=== PATIENT | male | born 1950 | race Caucasian/White ===

== ENCOUNTER 2020-05-06 09:00 | Outpatient (RCR) | payer MEDICARE, SELFPAY ==
[2020-04-11 08:28] VITALS: BP 158/68; PULSE 68; RESP 16; TEMP 35.9; O2SAT 96
[2020-04-15 09:25] LABS: Glucose Point of Care 173 (65-105)
--- NOTE | 2020-05-09 09:43 | PCCPR ---
Absent without call or show/ early dc Spoke with Irvin about his recent absence past 2 sessions. He verbalized it was too cold to attend yesterday and today. States he is planning to head in another direction doing his [facility]. States he does not plan to return. Wished him well. Discharged
== END 2020-05-09 09:48 | disposition home or self-care (01) ==
LOC: ANHCPREHAB 09:00
PROVIDERS: PCP Family Medicine
DX: Z95.1 Presence of aortocoronary bypass graft (principal); Z95.2 Presence of prosthetic heart valve
CPT/HCPCS: 93798

== ENCOUNTER 2021-01-21 00:18 | Day surgery (SDC) | payer MEDICARE, SELFPAY ==
[2021-01-09 14:57] VITALS: BMI 33.5
[2021-01-21 07:52] VITALS: BP 141/76; PULSE 70; RESP 18; TEMP 35.8; O2SAT 94
--- NOTE | 2021-01-21 07:52 | WPDGICN ---
Assessment and Plan Assessment and plan (1) History of colon polyps: Code(s): Z86.010 - Personal history of colonic polyps Status: Acute Assessment and Plan: Patient has a distant history of colon polyps plan is for surveillance colonoscopy at 5 year intervals. He also has a family history of colon cancer in his mother and colon polyps in His son. Plan is for surveillance colonoscopy at this time. Follow-up at 5 year intervals suggested. (2) Family history of colon cancer in mother: Code(s): Z80.0 - Family history of malignant neoplasm of digestive organs Status: Acute GI Consult Note Consult date/time: 01/21/21 07:52 HPI: Som Euceda is a 70 year old male Presents for screening colonoscopy. Patient's current weight appetite bowel movements are normal. He denies abdominal pain. He has had no bleeding. Patient does have a history of villous adenoma removed from the colon approximately 15 years ago. He had a benign hyperplastic polyp removed from the colon 5 years ago. His family history is significant that his mother had colon cancer his son has been identified as having colon polyps as well. Patient presents today for surveillance colonoscopy. Review of Systems Review of Systems: All systems reviewed & are unremarkable except as noted in HPI and below PMFSH Past Medical History Medical History Diverticulosis small intestine Myocardial infarction Surgical History Surgical History H/O aortic valve replacement History of cardiac catheterization (~1998) History of cardiac catheterization (~1993) History of radiofrequency ablation (RFA) procedure for cardiac arrhythmia History of radiofrequency ablation procedure for cardiac arrhythmia Hx of heart artery stent S/P CABG x 1 S/P left atrial appendage ligation Family History Family History Mother Diabetes mellitus Renal disease Carcinoma of colon Cerebrovascular accident Father Heart disease Hyperlipidemia Hypertension COPD (chronic obstructive pulmonary disease) Sibling Heart disease Lung cancer Diabetes mellitus Other Asthma Family history of allergic disorder Social History Social History Smoking packs per day: 1 Smoking cigarettes per day: 20.0 Years smoked: 20 Smoking pack-years: 20.00 Smoking status: Former smoker Tobacco type: cigarettes Second hand tobacco smoke exposure: No Smoking end date: 04/12/93 Alcohol intake: current Drinks per week: 2 Substance use: never Substance use type: does not use Living arrangements: with family Spiritual care concerns: No Meds Home Medications and Allergies Home Medications Medication Instructions Recorded Confirmed Type atorvastatin 80 mg tablet 80 mg PO DAILY 03/16/19 01/09/21 History finasteride 5 mg tablet 5 mg PO DAILY 03/16/19 01/09/21 History metformin 1,000 mg tablet 1,000 mg PO BID 03/16/19 01/09/21 History tamsulosin 0.4 mg capsule 0.4 mg PO DAILY 03/16/19 01/09/21 History dulaglutide [Trulicity] 1.5 mg SUBCUT WEEKLY 04/11/20 01/09/21 History losartan 12.5 mg PO DAILY 04/11/20 01/09/21 History rivaroxaban [Xarelto] 20 mg PO DAILY 04/11/20 01/09/21 History aspirin 81 mg tablet,delayed 81 mg PO DAILY 11/29/20 01/09/21 History release carvedilol 6.25 mg PO BID 01/09/21 01/09/21 History Allergies Allergy/AdvReac Type Severity Reaction Status Date / Time lisinopril Allergy Intermediate cough Verified 01/21/21 07:50 simvastatin Allergy Intermediate cramp Verified 01/21/21 07:50 empagliflozin AdvReac Severe Yeast Verified 01/21/21 07:50 [From Jardiance] Infection Exam Narrative: Physical exam reveals patient to be alert. Vital signs stable. HEENT exam is unremarkable. Christina
[2021-01-21] MEDS: LACTATED RINGERS 1,000 ML 150 ML IV CONT (08:01)
[2021-01-21] MEDS: GENTAMICIN 80MG/SOD CHL 50 ML 80 MG/50 ML BAG 100 MG IVPB (08:03)
--- NOTE | 2021-01-21 08:09 | WPDANESEPPF ---
Anes - Initial Pre Proc Eval Procedure: Operation Date: 01/21/21 09:00 Proposed Procedures p Screening Colonoscopy - Reuben Garcia MD Date/Time: 01/21/21 08:09 Surgeon: Reuben Garcia MD Pre Op Diagnosis: screening colon, hx of colon polyps Patient Data Age: 70 Gender: M Height: 1.75 m Weight: 106.7 kg Last Vital Signs Temp 96.4 F L 01/21/21 07:52 Pulse 70 01/21/21 07:52 Resp 18 01/21/21 07:52 BP 141/76 H 01/21/21 07:52 Pulse Ox 94 01/21/21 07:52 Allergies Allergy/AdvReac Type Severity Reaction Status Date / Time lisinopril Allergy Intermediate cough Verified 01/21/21 07:50 simvastatin Allergy Intermediate cramp Verified 01/21/21 07:50 empagliflozin AdvReac Severe Yeast Verified 01/21/21 07:50 [From Jardiance] Infection Home Medications Medication Instructions Recorded Confirmed Type atorvastatin 80 mg tablet 80 mg PO DAILY 03/16/19 01/21/21 History finasteride 5 mg tablet 5 mg PO DAILY 03/16/19 01/21/21 History metformin 1,000 mg tablet 1,000 mg PO BID 03/16/19 01/21/21 History tamsulosin 0.4 mg capsule 0.4 mg PO DAILY 03/16/19 01/21/21 History dulaglutide [Trulicity] 1.5 mg SUBCUT WEEKLY 04/11/20 01/21/21 History losartan 12.5 mg PO DAILY 04/11/20 01/21/21 History rivaroxaban [Xarelto] 20 mg PO DAILY 04/11/20 01/21/21 History aspirin 81 mg tablet,delayed 81 mg PO DAILY 11/29/20 01/21/21 History release carvedilol 6.25 mg PO BID 01/09/21 01/21/21 History Patient hx anesthesia problems: none Family hx anesthesia problems: none Results Review: All pre-operative results and documents have been reviewed as part of the pre-operative evaluation. COUNTS INCLUDE 234 BEDS AT THE [facility] Past Medical History Medical History Diverticulosis small intestine Myocardial infarction Surgical History Surgical History H/O aortic valve replacement History of cardiac catheterization (~1998) History of cardiac catheterization (~1993) History of radiofrequency ablation (RFA) procedure for cardiac arrhythmia History of radiofrequency ablation procedure for cardiac arrhythmia Hx of heart artery stent S/P CABG x 1 S/P left atrial appendage ligation Family History Family History Mother Diabetes mellitus Renal disease Carcinoma of colon Cerebrovascular accident Father Heart disease Hyperlipidemia Hypertension COPD (chronic obstructive pulmonary disease) Sibling Heart disease Lung cancer Diabetes mellitus Other Asthma Family history of allergic disorder Social History Social History Smoking packs per day: 1 Smoking cigarettes per day: 20.0 Years smoked: 20 Smoking pack-years: 20.00 Smoking status: Former smoker Tobacco type: cigarettes Second hand tobacco smoke exposure: No Smoking end date: 04/12/93 Alcohol intake: current Drinks per week: 2 Substance use: never Substance use type: does not use Living arrangements: with family Spiritual care concerns: No Anes - Eval Final PreProcedure Day of Procedure 01/21/21 08:09 Patient weight: obese Heart: regular rate and rhythm Lungs: clear to auscultation Airway: Mallampati scale class III Neurological: alert and oriented Last oral intake: >/= 8 hours ASA classification: III Emergent: no Anesthetic plan: proceed Anesthesia type and monitoring: general GIVS and standard monitoring Results Review: All pre-operative results and documents have been reviewed as part of the pre-operative evaluation. Informed Consent: The patient's anesthetic plan and its attendant risks and benefits were discussed with the patient/family/POA. Questions were solicited and answers provided to the satisfaction of the patient/family/POA.
[2021-01-21 08:11] LABS: Glucose Point of Care 156 mg/dl (65-105)
[2021-01-21 08:41] VITALS: BP 114/63; PULSE 71; RESP 24; O2SAT 98
[2021-01-21 08:51] VITALS: BP 127/80; PULSE 75; RESP 22; O2SAT 98
[2021-01-21 09:01] VITALS: BP 127/74; PULSE 61; RESP 22; O2SAT 98
== END 2021-01-21 09:14 | disposition home or self-care (01) ==
PROVIDERS: PCP Family Medicine; Visit Provider Internal Medicine Gastroenterology
PROC: 0DJD8ZZ Inspection of Lower Intestinal Tract, Via Natural or Artificial Opening Endoscopic (ICD-10-PCS; CPT 45378; principal; 2021-01-21 09:00)
DX: Z12.11 Encounter for screening for malignant neoplasm of colon (principal); K63.5 Polyp of colon; K64.8 Other hemorrhoids; Z80.0 Family history of malignant neoplasm of digestive organs; Z83.71 Family history of colonic polyps; I25.2 Old myocardial infarction; Z95.1 Presence of aortocoronary bypass graft; Z95.4 Presence of other heart-valve replacement; Z95.5 Presence of coronary angioplasty implant and graft; Z87.891 Personal history of nicotine dependence; Z79.84 Long term (current) use of oral hypoglycemic drugs; Z79.01 Long term (current) use of anticoagulants; Z79.82 Long term (current) use of aspirin; E66.9 Obesity, unspecified; Z68.34 Body mass index [BMI] 34.0-34.9, adult
CPT/HCPCS: 45385; 82948; 88305; J1580; J2704; J7120

== ENCOUNTER 2021-08-21 13:27 | Outpatient (RCR) | payer MEDICARE, SELFPAY ==
[2021-08-21] MEDS: FAMOTIDINE 20 MG TABLET PO (13:41)
[2021-08-21] MEDS: diphenhydrAMINE HCl CAP 25 MG CAPSULE PO (13:41)
[2021-08-21] MEDS: ACETAMINOPHEN 325 MG TABLET 650 MG PO (13:41)
[2021-08-21 13:44] VITALS: BP 116/54; PULSE 80; TEMP 35.8; O2SAT 96
[2021-08-21] MEDS: BEBTELOVIMAB 175 MG/2 ML VIAL IV PUSH (13:56)
[2021-08-21 14:53] VITALS: BP 120/73; PULSE 78; O2SAT 98
== END 2021-08-21 16:00 ==
LOC: AMCINF 13:27
PROVIDERS: PCP Family Medicine; Referring Provider Family Medicine; Visit Provider Internal Medicine Hematology & Oncology
DX: U07.1 COVID-19 (principal); I12.9 Hypertensive chronic kidney disease with stage 1 through stage 4 chronic kidney disease, or unspecified chronic kidney disease; I25.10 Atherosclerotic heart disease of native coronary artery without angina pectoris; E11.9 Type 2 diabetes mellitus without complications; N18.9 Chronic kidney disease, unspecified
CPT/HCPCS: A9270; M0222; Q0222

== ENCOUNTER 2024-02-09 08:03 | Outpatient (CLI) | payer MEDICARE, SELFPAY ==
[2024-02-09 09:59] LABS: Alanine Aminotransferase 29 U/L (6-50); Albumin Level 3.7 g/dL (3.5-5.1); Alkaline Phosphatase 76 U/L (38-126); Anion Gap 7 mmol/L (4-12); Aspartate Amino Transferase 23 U/L (17-59); Bilirubin,Total 0.6 mg/dL (0.2-1.3); Blood Urea Nitrogen 21 mg/dL (9-20); Calcium 8.6 mg/dL (8.4-10.2); Carbon Dioxide 28 mmol/L (22-30); Chloride 101 mmol/L (98-107); Estimated Glomerular Filt Rate > 60; Glucose 255 mg/dL (65-110); Potassium 4.1 mmol/L (3.4-5.0); Sodium 136 mmol/L (137-145)
== END 2024-02-09 08:04 | disposition home or self-care (01) ==
LOC: ANHLAB 08:04
PROVIDERS: PCP Family Medicine; Visit Provider Family Medicine
DX: E11.9 Type 2 diabetes mellitus without complications (principal)
CPT/HCPCS: 36415; 80053; 83036

== ENCOUNTER 2024-06-23 08:20 | Outpatient (CLI) | payer MEDICARE, SELFPAY ==
--- OUTSIDE RECORDS SUMMARY | 2024-06-23 08:37 | XMS_ITS | Patient Health Summary ---
Author Organization [facility] new test company Address [address] [place] [address] Care Team Providers Care Open Winder Name Role Phone Genaro Myles MD Primary Care Provider [phone]- [phone] Note from [facility],non-owned Affiliates and Associated Physician Practices is amultiple site organization consisting of ambulatory clinics and hospital sitesin [place], [place], [place] and [place]. This disclosure is being madepursuant to the Care Everywhere program and may not contain all information available regarding this patient. Last updated 17.[facility] [employer] Allergies No known active allergies Medications * Be aware that medications may not be up to date on this document. Alwaysverify current medications with the patient. * aspirin (ASPIRIN) 81 MG tablet Take 81 mg by mouth once daily * atorvastatin (LIPITOR) 80 MG tablet Take 80 mg by mouth at bedtime * finasteride (PROSCAR) 5 MG tablet Take 5 mg by mouth once daily * metFORMIN (GLUCOPHAGE) 1000 MG tablet Take 1,000 mg by mouth 2 times daily with morning and evening meal * rivaroxaban (XARELTO) 20 MG tablet Take 20 mg by mouth daily with food * sotalol (BETAPACE) 80 MG tablet Take 80 mg by mouth 2 times daily * tamsulosin (FLOMAX) 0.4 MG capsule Take 0.4 mg by mouth once daily At the same time every day after a meal. * dulaglutide (TRULICITY) 1.5 MG/0.5ML injection Inject 1.5 mg subcutaneously every 7 days Active Problems Problem Noted Date Diagnosed Date PAF (paroxysmal atrial fibrillation) 03/01/2019 Typical atrial flutter 03/01/2019 CAD (coronary artery disease), [place] coronary a rtery 03/01/2019 HTN (hypertension) 03/01/2019 Type 2 diabetes mellitus 03/01/2019 Dyslipidemia 03/01/2019 Social History Tobacco Use Types Packs/Day Years Used Date Smoking Tobacco: Former Sex and Gender Information Value Date Recorded Sex Assigned at Not on file Gender Identity Not on file Sexual Orientation Not on file Last Filed Vital Signs Vital Sign Reading Time Taken Comments Blood Pressure 122/70 12/06/2019 10:02 AM CDT Pulse 53 12/06/2019 10:02 AM CDT Temperature - - Respiratory Rate 10 12/06/2019 10:02 AM CDT Oxygen Saturation - - Inhaled Oxygen Concentration - - Weight 109.3 kg (241 lb) 12/06/2019 10:02 AM CDT Height 175.3 cm (5' 9 ) 12/06/2019 10:02 AM CDT Body Mass Index 35.59 12/06/2019 10:02 AM CDT Procedures * CARDIAC CATH(Performed 01/08/2020) * LAB MISC TEST(Performed 01/08/2020) * EKG 12-LEAD(Performed 12/06/2019) Performed for Typical atrial flutter (HCC), Essential hypertension, SOB (shortness of breath), PAF (paroxysmal atrial fibrillation) (HCC) * HOLTER MONITOR(Performed 05/25/2019) Performed for Typical atrial flutter (HCC), Essential hypertension * EKG 12-LEAD(Performed 05/25/2019) Performed for Typical atrial flutter (HCC) * ABLATION FOR ATRIAL FIBRILLATION/FLUTTER(Performed 03/13/2019) * ECHOCARDIOGRAM TRANSESOPHAGEAL(Performed 03/13/2019) * EKG 12-LEAD(Performed 03/01/2019) Performed for PAF (paroxysmal atrial fibrillation) (HCC), Typical atrial flutter (HCC) * LAB MISC TEST(Performed 02/22/2019) * ECHO COMPLETE(Performed 10/10/2018) * PULMONARY/RESPIRATORY REPORT ORDER(Performed 12/26/2009) Results * CARDIAC CATH (01/08/2020) Historical Provider MD CARDIAC SERVICES ORDERABLES * LAB MISC TEST (01/08/2020) Only the most recent of2 resultswithin the time period is included. Blood BLOOD SPECIMEN / Unknown Historical Provider LAB SEND OUT * EKG 12-LEAD (12/06/2019 10:08 AM CDT) Only the most recent of3 resultswithin the time period is included. Narrative Palak Ambrose - 12/06/2019 10:08 AM CDT XavierDara 12/06/2019 10:08 AM See scan Procedure Note Carmen Parkha - 12/06/2019 10:08 AM CDT See scan Dougie Adrian MD ECG ORDERABLES * HOLTER MONITOR (05/25/2019 12:49 PM EMBEDDED LINUX DEVELOPER) Narrative Fang Avalos CNMT - 05/25/2019 12:49 PM EMBEDDED LINUX DEVELOPER Fang Avalos CNMT 06/12/2019 2:15 PM See scan Dougie Adrian MD CARDIAC SERVICE S ORDERABLES * ABLATION FOR ATRIAL FIBRILLATION/FLUTTER (03/13/2019) Historical Provider GENERIC SURGICAL HISTORY * ECHO MIT[place]LL (03/13/2019) Historical Provider ECHO ORDERABLES * ECHO COMPLETE (10/10/2018) Historical Provider ECHO ORDERABLES * PULMONARY/RESPIRATORY REPORT ORDER (12/26/2009 8:23 PM CDT) Narrative Procedure Note Document, Scanned - 12/26/2009 2:32 PM CDT Scanned Document RESPIRATORY THERAPY ORDERABLES Care Teams Open Winder Relationship Specialty Start Date End Date Genaro Myles MD [address] [place] [phone] PCP - General Family Medicine 03/01/19
--- OUTSIDE RECORDS SUMMARY | 2024-06-23 08:37 | XMS_ITS | Encounter Summary ---
Author Organization [facility] Address [address] [place] [address] Care Team Providers Care Assembler Insulator Name Role Phone Genaro Myles MD Primary Care Provider [phone] Unknown, Notinfile Primary Care Provider Unavail able Genaro Myles MD Primary Care Provider [phone] -[phone] Encounter Details Date Type Department Care Team (Late st Contact Info) Description 07/20/2016 Orders Only [facility] ProviderVamshi MD [address] [place] [id number] Social History Tobacco Use Types Packs/Day Years Used Date Smoking Tobacco: Former Cigarettes Q uit: 04/12/1997 Alcohol Use Standard Drinks/Week Comments Yes 0 (1 standard drink = 0.6 oz pur e alcohol) Sex and Gender Information Value Date Recorded Sex Assigned at Not on file Legal Sex Male 10:49 AM FANS CLERK Gender Identity Not on file Sexual Orientation Not on file documented as of this encounter Plan of Treatment Not on file documented as of this encounter Procedures Procedure Name Priority Date/Time Associated Diagnosis Comments CARDIOLOGY REPORT 07/20/2016 documented in this encounter Results * CARDIOLOGY REPORT (07/20/2016) Anatomical Region Laterality Modality Other Narrative 07/20/2016 Ordered by an unspecified provider. Historical Provider [facility] EMILY OZUNA Final Result documented in this encounter Visit Diagnoses Not on filedocumented in this encounter Care Teams Assembler Insulator Relationship Specialty Start Date End Date Genaro Myles MD PCP - General 07/20/16 10/20/16 Unknown, Notinfile PCP - General 10/21/16 10/21/16 Genaro Myles MD PCP - General 10/22/16 documented as of this encounter
--- OUTSIDE RECORDS SUMMARY | 2024-06-23 08:37 | XMS_ITS | Referral Summary ---
Author Organization [facility] [employer] Address [address] [place] [address] Care Team Providers Care Product Safety Officer Name Role Phone Genaro Myles MD Primary Care Provider [phone]- [phone] Source Comments [employer]non-owned Affiliates and Associated Physician Practices is amultiple site organization consisting of ambulatory clinics and hospital sitesin [place], [place], [place] and [place]. This disclosure is being madepursuant to the Care Everywhere program and may not contain all information available regarding this patient. Last updated 17.[employer] Allergies No known active allergies Medications * Be aware that medications may not be up to date on this document. Alwaysverify current medications with the patient. Medication Sig Dispensed Refills Start Date End Date Status aspirin (ASPIRIN) 81 MG tablet Take 81 mg by mouth once daily Active atorvastatin (LIPITOR) 80 MG tablet Take 80 mg by mouth at bedtime Active finasteride (PROSCAR) 5 MG tablet Take 5 mg by mouth once daily Active metFORMIN (GLUCOPHAGE) 1000 MG tablet Take 1,000 mg by mouth 2 times daily with morning and evening meal Active rivaroxaban (XARELTO) 20 MG tablet Take 20 mg by mouth daily with food Active sotalol (BETAPACE) 80 MG tablet Take 80 mg by mouth 2 times daily Active tamsulosin (FLOMAX) 0.4 MG capsule Take 0.4 mg by mouth once daily At the same time every day after a meal. Active dulaglutide (TRULICITY) 1.5 MG/0.5ML injection Inject 1.5 mg subcutaneously every 7 days Active Active Problems Problem Noted Date Diagnosed Date PAF (paroxysmal atrial fibrillation) 03/01/2019 Typical atrial flutter 03/01/2019 CAD (coronary artery disease), [place] coronary a rtery 03/01/2019 HTN (hypertension) 03/01/2019 [...] Mass Index 35.59 12/06/2019 10:02 AM CDT Plan of Treatment Not on file Care Teams Product Safety Officer Relationship Specialty Start Date End Date Genaro Myles MD [address] [place] [address] [address] [place] [phone] PCP - General Family Medicine 03/01/19
--- OUTSIDE RECORDS SUMMARY | 2024-06-23 08:37 | XMS_ITS | Clinical Summary ---
Author Organization [facility] Address [address] [place] [address] Care Team Providers Care Irrigation Specialist Name Role Phone Genaro Myles MD Primary Care Provider [phone] Allergies Active Allergy Reactions Criticality Noted Date Comments Empagliflozin Rash Medium 02/21/2019 Irbesartan Shortness of breath High 01/31/2016 Lisinopril Cough Low 01/31/2016 Simvastatin Muscle pain Medium 01/31/2016 Medications atorvastatin (LIPITOR) 80 mg tablet take 1 tablet (80MG) by oral route every day 0 3 Active metFORMIN (GLUCOPHAGE) 1,000 mg tablet take 1 tablet (1000MG) by oral route 2 times every day with morning and evening meals 0 3 Active aspirin (ASPIRIN LOW DOSE) 81 mg tablet take 1 Tablet (81MG) by oral route every day 0 3 Active sotalol (BETAPACE) 80 mg tablet take 1 by Oral route 2 times every day 180 3 3 Active rivaroxaban (XARELTO) tablet take 1 tablet (20MG) by oral route every day with the evening meal 90 3 3 Active empagliflozin (JARDIANCE) 25 mg tabletIndicatio ns:type 2 diabetes mellitus Take 1 tablet (25 mg total) by mouth daily Active tamsulosin (FLOMAX) 0.4 mg capsule,extende d release 24hr Take 1 capsule (0.4 mg total) by mouth daily Active finasteride (PROSCAR) 5 mg tablet Take 1 tablet (5 mg total) by mouth daily Active carvediloL (COREG) 12.5 mg tablet Take 0.5 tablets (6.25 mg total) by mouth 3 Active cetirizine (ZyrTEC) 10 mg tablet 1 tablet (10 mg total) 2 Active furosemide (LASIX) 20 mg tablet Take 1 tablet (20 mg total) by mouth 1 Active ketotifen (ZADITOR) 0.025 % ophthalmic solution Administer into affected eye(s) 4 Active omeprazole 20 mg tablet,delayed release (DR/EC) Take 1 tablet (20 mg total) by mouth 4 Active losartan (COZAAR) 25 mg tablet Take 0.5 tablets (12.5 mg total) by mouth 3 Active gabapentin (NEURONTIN) 100 mg capsule Week one take 1 tablet in the morning, take 1 tablet in the afternoon and 1 tablet in the evening Week two take 1 tablet in the morning, take 1 tablet in the afternoon and 2 tablets in the evening Week three take 1 tablet in the morning, take 2 tablets in the afternoon and 2 tablets in the evening Week four take 2 tablets in the morning, take 2 tablets in the afternoon and 2 tablets in the evening 120 capsule 4 Active Active Problems Problem Noted Date Diagnosed Date Chronic cough 01/18/2024 Coronary artery disease invo lving [place] coronary artery of [place] heart without angina pectoris 04/14/2017 History of coronary artery stent placement 04/14 Typical atrial flutter 04/14/2017 Impotence of organic origin 09/22/2016 Elevated prostate specific antigen (PSA) 017 Encounters Date Type Department Care Team Description 05/03/2024 9:40 AM AGENCY DIRECTOR Therapy [facility] Otolaryngology [address] [place] [phone] Yaneli Shipman SLP Chronic cough (Primary Dx) 05/03/2024 9:40 AM AGENCY DIRECTOR Office Visit [facility] ENT [address] [phone] Melvina Walker MD Chronic cough (Primary Dx); Right ear impacted cerumen from Last 3 Months Medical History Medical History Date Comments Hx Other Medical Diabetes Type I I Adiposity Obesity Family History Medical History Relation Name Comments Cardiomyopathy Father 2 Cardiomyopath y; Heart attack Maternal Grandfather 2 Myoca rdial Infarction; Relation Name Status Comments Father 1 Alive Father 2 Maternal Grandfather 1 Alive Maternal Grandfather 2 Social History Tobacco Use Types Packs/Day Years Used Date Smoking Tobacco: Former Smokeless Tobacco: Never Tobacco Cessation:Counseling Given: Not Answered Alcohol Use Standard Drinks/Week Comments Yes 0 (1 standard drink = 0.6 oz pur e alcohol) Sex and Gender Information Value Date Recorded Sex Assigned at Not on file Legal Sex Male 10:49 AM AGENCY DIRECTOR Gender Identity Not on file Sexual Orientation Not on file Obstetrics History Last Filed Vital Signs Vital Sign Reading Time Taken Comments Blood Pressure 128/62 10/25/2018 10:51 AM CDT Pulse 54 10/25/2018 10:51 AM CDT Temperature - - Respiratory Rate - - Oxygen Saturation 95% 10/25/2018 10:51 AM CDT Inhaled Oxygen Concentration - - Weight 106.1 kg (234 lb) 01/19/2024 8:59 AM CDT Height 175.3 cm (5' 9 ) 01/19/2024 8:59 AM CDT Body Mass Index 34.56 01/19/2024 8:59 AM CDT Plan of Treatment Health Maintenance Due Date Last Done Comments Colon Cancer Screening-Colonoscopy 1948 Depression Screening 1948 Fall Risk Assessment 1948 Hepatitis C Screening 1948 Hepatitis B Screening 1966 Abdominal Aortic Aneurysm (A AA) Screen 2013 Well Visit 65+ 2013 Covid-19 Vaccine (6 - 2023-2 5 season) 2023 02/18/2023, 02/25/2022, 02/08/2021, Additional history exists Influenza Vaccine (#1) 2023 , 01/23/2022, 02/10/2019, Additional history exists DTaP/Tdap/Td Vaccine (2 - Td or Tdap) 01/30/2026 01/31/2016 Pneumococcal vaccine 65+ Completed 12/06/2014, 11/11 Zoster Vaccine Completed 07/21/2021, 07/2020, 07/31/2016 Insurance COMMERCIAL GENERIC MEDICARE MEDICARE [facility] MEDICARE SUPPLEMENT Care Teams Irrigation Specialist Relationship Specialty Start Date End Date Genaro Myles MD PCP - General 10/22/16
--- OUTSIDE RECORDS SUMMARY | 2024-06-23 08:37 | XMS_ITS | Clinical Summary ---
Author Organization [facility] Address [address] [place] [address] Care Team Providers Care Toe Trimmer Name Role Phone Genaro Myles MD Primary Care Provider [phone]- [phone] Source Comments [facility],non-owned Affiliates and Associated Physician Practices is amultiple site organization consisting of ambulatory clinics and hospital sitesin [place], [place], [place] and [place]. This disclosure is being madepursuant to the Care Everywhere program and may not contain all information available regarding this patient. Last updated 17.[facility] Allergies No known active allergies Medications * [...] atrial flutter 03/01/2019 CAD (coronary artery disease), [place] coronary a rtery 03/01/2019 HTN (hypertension) 03/01/2019 Type 2 diabetes mellitus 03/01/2019 Dyslipidemia 03/01/2019 Family History Medical History Relation Name Comments CAD (Coronary Artery Disease) Father Relation Name Status Comments Father Social History Tobacco Use Types Packs/Day Years [...] 12/06/2019 10:02 AM CDT Plan of Treatment Health Maintenance Due Date Last Done Comments COLOGUARD (AGES 45-75) - COL ON CA SCREENING 1950 COLON MONITORING 1948 COLONOSCOPY - COLON CA SCREENING 1948 CT COLONOGRAPHY - COLON CA SCREENING 1950 Colorectal Cancer Screening 1950 FIT - COLON CA SCREENING 1948 FLEX SIG - COLON CA SCREENING 1950 MEDICARE AWV 12 MONTHS 1948 HEPATITIS C SCREENING 07/29/1966 DIABETES-SERUM CREATININE 1966 DTAP/TDAP/TD VACCINES (1 - Tdap) 08/03/1967 PNEUMOCOCCAL VACCINE 50+ (1 of 1 - PCV) 1998 ZOSTER VACCINE (1 of 2) 1998 DIABETES RETINOPATHY SCREENING 03/01/2019 DIABETES-FOOT EXAM WITH MONOFILAMENT 03/01/2019 DIABETES-HGB A1C 03/01/2019 Respiratory Syncytial Virus (RSV) Vaccine Pt: or over 60 yrs (1 - 1-dose 75+ series) 08/03/2023 COVID-19 VACCINE ( - 2023-2 5 season) 2023 INFLUENZA VACCINE (#1) 2023 DEPRESSION SCREENING 04/12/2024 DIABETES - URINE PROTEIN SCREENING 04/12/2024 HEPATITIS B VACCINE Aged Out No longe r eligible based on patient's age to complete this topic HIB VACCINE Aged Out No longer eligi ble based on patient's age to complete this topic HPV VACCINE Aged Out No longer eligi ble based on patient's age to complete this topic MENINGOCOCCAL (Group B) VACC INE SHARED DECISION-MAKING Aged Out No longer eligibl e based on patient's age to complete this topic MENINGOCOCCAL GROUPS A/C/Y/W VACCINE Aged Out No longer eligible b ased on patient's age to complete this topic Care Teams Toe Trimmer Relationship Specialty Start Date End Date Genaro Myles MD [address] [place] [phone] PCP - General Family Medicine 03/01/19
--- OUTSIDE RECORDS SUMMARY | 2024-06-23 08:37 | XMS_ITS | Referral Summary ---
Author Organization [facility] Address [address] [place] [address] Care Team Providers Care Bindery Machine Feeder Offbearer Name Role Phone Genaro Myles MD Primary Care Provider [phone] [phone] Encounters Date Type Department Care Team Description 05/03/2024 9:40 AM BACON SKIN LIFTER Therapy [facility] Otolaryngology [address] [place] [address] Medical [address] [address] Yaneli Shipman SLP Chronic cough (Primary Dx) 05/03/2024 9:40 AM BACON SKIN LIFTER Office Visit [facility] ENT [address] [place] [address] Medical Office Building [address] [address] Melvina Walker MD Chronic cough (Primary Dx); Right ear impacted cerumen from Last 3 Months Allergies Active Allergy Reactions Criticality Noted Date [...] cough 01/18/2024 Coronary artery disease invo lving [place] coronary artery of [place] heart without angina pectoris 04/14/2017 History of coronary artery stent placement 04/14 Typical atrial flutter 04/14/2017 Impotence of organic origin 09/22/2016 Elevated prostate specific antigen (PSA) 06/13/2 017 Social History Tobacco Use Types Packs/Day Years Used Date Smoking Tobacco: Former Smokeless Tobacco: Never Tobacco Cessation:Counseling Given: Not Answered Alcohol Use Standard Drinks/Week Comments Yes 0 (1 standard drink = 0.6 oz pur e alcohol) Sex and Gender Information Value Date Recorded Sex Assigned at Not on file Legal Sex 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
[2024-06-23 10:00] LABS: Alanine Aminotransferase 31 U/L (6-50); Alkaline Phosphatase 77 U/L (38-126); Anion Gap 10 mmol/L (4-12); Aspartate Amino Transferase 21 U/L (17-59); Bilirubin,Total 0.9 mg/dL (0.2-1.3); Blood Urea Nitrogen 24 mg/dL (9-20); Calcium 8.9 mg/dL (8.4-10.2); Carbon Dioxide 25 mmol/L (22-30); Chloride 103 mmol/L (98-107); Cholesterol 98 mg/dL (0-200); Estimated Glomerular Filt Rate > 60; Glucose 203 mg/dL (65-110); HDL Direct 34 mg/dL; Potassium 4.4 mmol/L (3.4-5.0); Sodium 138 mmol/L (137-145); Triglycerides 120 mg/dL (<150)
[2024-06-23 10:11] LABS: LDL Cholesterol Direct 36 mg/dL
[2024-06-23 10:15] LABS: Creatinine Urine 157.8 mg/dL
[2024-06-23 10:16] LABS: Microalbumin Urine Random 110.4 mg/L (0-16.7)
[2024-06-23 10:25] LABS: Hemoglobin A1C 9.9 % (<5.7)
== END 2024-06-23 08:21 | disposition home or self-care (01) ==
LOC: ANHLAB 08:21
PROVIDERS: PCP Family Medicine; Visit Provider Family Medicine
DX: E11.9 Type 2 diabetes mellitus without complications (principal)
CPT/HCPCS: 36415; 80053; 80061; 82043; 83036

== ENCOUNTER 2024-10-25 08:17 | Outpatient (CLI) | payer MEDICARE, SELFPAY ==
--- OUTSIDE RECORDS SUMMARY | 2024-10-25 08:20 | XMS_ITS | Encounter Summary ---
Author Organization [facility] Address [address] [place] [address] Care Team Providers Care Bonding Agent Name Role Phone Genaro Myles MD Primary Care Provider [phone] [phone] Unknown, Notinfile Primary Care Provider Unavail able Genaro Myles MD Primary Care Provider [phone] -[phone] Encounter Details Date Type Department Care Team (Late st Contact Info) Description 07/20/2016 Orders Only [facility] ProviderVamshi MD [address] [place] [id number] Social History Tobacco Use Types Packs/Day Years Used Date Smoking Tobacco: Former Cigarettes Q uit: 04/12/1997 Alcohol Use Standard Drinks/Week Comments Yes 0 (1 standard drink = 0.6 oz pur e alcohol) Sex and Gender Information Value Date Recorded Sex Assigned at Not on file 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
--- OUTSIDE RECORDS SUMMARY | 2024-10-25 08:20 | XMS_ITS | Clinical Summary ---
Author Organization [facility] Address [address] [place] [address] Care Team Providers Care Collar Tailor Name Role Phone Genaro Myles MD Primary Care Provider [phone] [phone] Allergies Active Allergy Reactions Criticality Noted Date [...] cough 01/18/2024 Coronary artery disease invo lving [place] coronary artery of [place] heart without angina pectoris 04/14/2017 History of coronary artery stent placement 04/14 Typical atrial flutter 04/14/2017 Impotence of organic origin 09/22/2016 Elevated prostate specific antigen (PSA) 017 Medical History Medical History Date Comments Hx [...] on file 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 Gender Identity Not on file Sexual Orientation [...] 8:59 AM CDT Height 175.3 cm (5' 9) 01/19/2024 8:59 AM CDT Body Mass Index 34.56 01/19/2024 8:59 AM CDT Plan of Treatment Health Maintenance Due Date Last Done Comments Depression Screening 1948 Fall Risk Assessment 1948 Hepatitis C Screening 1948 Hepatitis B Screening 1966 Abdominal Aortic Aneurysm (A AA) Screen 2013 Well Visit 65+ 2013 Covid-19 Vaccine (6 - 2023-2 5 season) 2023 02/18/2023, 02/25/2022, 02/08/2021, Additional history exists Influenza Vaccine (#1) 2024 , 01/23/2022, 02/10/2019, Additional history exists DTaP/Tdap/Td Vaccine (2 - Td or Tdap) 01/30/2026 01/31/2016 Pneumococcal vaccine 65+ Completed 12/06/2014, 11/11 Zoster Vaccine Completed 07/21/2021, 07/2020, 07/31/2016 Insurance COMMERCIAL GENERIC MEDICARE Member Subscriber Plan / Payer (Ef fective 2013-Present) Name:Som Euceda Member ID:[id number] Relation to Subscriber:Self Name:Som Euceda Subscriber ID:[id number] Payer ID:[id number] Group ID:Not on file Type:MEDICARE TRADITIONAL Address: [place] [phone] MEDICARE Member Subscriber Plan / Payer ( fective 2014-Present) Name:Som Euceda Member ID:[id number] Relation to Subscriber:Self Name:Som Euceda Subscriber ID:[id number] Payer ID:[id number] Group ID:Not on file Type:MEDICARE TRADITIONAL Address: [place] [id number] [facility] MEDICARE SUPPLEMENT Care Teams Collar Tailor Relationship Specialty Start Date End Date Genaro Myles MD PCP - General 10/22/16
--- OUTSIDE RECORDS SUMMARY | 2024-10-25 08:20 | XMS_ITS | Clinical Summary ---
Author Organization [facility] Address [address] [facility] [place] [address] Care Team Providers Care Snack Bar Cashier Name Role Phone Genaro Myles MD Primary Care Provider [phone]- [phone] Source Comments [facility],non-owned Affiliates and Associated Physician Practices is amultiple site organization consisting of ambulatory clinics and hospital sitesin [place], [place], [place] and [place]. This disclosure is being madepursuant to the Care Everywhere program and may not contain all information available regarding this patient. Last updated 17.[facility] Allergies No known active allergies Medications * Be aware that medications may not be up to date on this document. Alwaysverify current medications with the patient. 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 Gender Identity Not on file Sexual Orientation [...] 10:02 AM CDT Height 175.3 cm (5' 9) 12/06/2019 10:02 AM CDT Body Mass Index 35.59 12/06/2019 10:02 AM CDT Plan of Treatment Health Maintenance Due Date Last Done Comments HEPATITIS C SCREENING 07/29/1966 DIABETES-SERUM CREATININE 1966 DTAP/TDAP/TD VACCINES (1 - Tdap) 08/03/1967 PNEUMOCOCCAL VACCINE 50+ (1 of 1 - PCV) 1998 ZOSTER VACCINE (1 of 2) 1998 DIABETES-FOOT EXAM WITH MONOFILAMENT 03/01/2019 DIABETES-HGB A1C 03/01/2019 Respiratory Syncytial Virus (RSV) Vaccine Pt: or over 60 yrs (1 - 1-dose 75+ series) 08/03/2023 COVID-19 VACCINE ( - 2023-2 5 season) 2023 DEPRESSION SCREENING 04/12/2024 DIABETES - URINE PROTEIN SCREENING 04/12/2024 INFLUENZA VACCINE (#1) 2024 HEPATITIS B VACCINE Aged Out No longe [...] on patient's age to complete this topic Insurance MEDICARE [employer] [place] [address] Care Teams Snack Bar Cashier Relationship Specialty Start Date End Date Genaro Myles MD [address] [place] [phone] PCP - General Family Medicine 03/01/19
--- OUTSIDE RECORDS SUMMARY | 2024-10-25 08:20 | XMS_ITS | Referral Summary ---
Author Organization [facility] Address [address] [place] [address] Care Team Providers Care Tailer In Name Role Phone Genaro Myles MD Primary Care Provider [phone] [phone] Allergies Active Allergy Reactions Criticality Noted Date [...] cough 01/18/2024 Coronary artery disease invo lving [place] coronary artery of [place] heart without angina pectoris 04/14/2017 History of coronary artery stent placement 04/14 Typical atrial flutter 04/14/2017 Impotence of organic origin 09/22/2016 Elevated prostate specific antigen (PSA) 017 Social History Tobacco Use Types Packs/Day Years Used Date Smoking Tobacco: Former Smokeless Tobacco: Never Tobacco Cessation:Counseling Given: Not Answered Alcohol Use Standard Drinks/Week Comments Yes 0 (1 standard drink = 0.6 oz pur e alcohol) Sex and Gender Information Value Date Recorded Sex Assigned at Not on file 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 [id number] [place] [address] MEDICARE * Guarantor: Som Euceda Account Type Relation to Patient Date of Phone Billing Address Personal/Family Self 1950 [address] [facility] [place] [address] MEDICARE [facility] MEDICARE SUPPLEMENT Care Teams Tailer In Relationship Specialty Start Date End Date Genaro Myles MD PCP - General 10/22/16
[2024-10-25 09:35] LABS: Hemoglobin A1C 7.4 % (<5.7)
[2024-10-25 10:11] LABS: Alanine Aminotransferase 39 U/L (6-50); Albumin Level 4.2 g/dL (3.5-5.1); Alkaline Phosphatase 69 U/L (38-126); Anion Gap 8 mmol/L (4-12); Aspartate Amino Transferase 32 U/L (17-59); Bilirubin,Total 0.5 mg/dL (0.2-1.3); Blood Urea Nitrogen 28 mg/dL (9-20); Calcium 9.5 mg/dL (8.4-10.2); Carbon Dioxide 29 mmol/L (22-30); Chloride 102 mmol/L (98-107); Estimated Glomerular Filt Rate > 60; Glucose 149 mg/dL (65-110); Potassium 4.4 mmol/L (3.4-5.0); Sodium 139 mmol/L (137-145); Total Protein 7.2 g/dL (6.3-8.2)
== END 2024-10-25 08:18 | disposition home or self-care (01) ==
LOC: ANHLAB 08:18
PROVIDERS: PCP Family Medicine; Visit Provider Family Medicine
DX: E11.65 Type 2 diabetes mellitus with hyperglycemia (principal)
CPT/HCPCS: 36415; 80053; 83036